=== PATIENT | female | born 1995 | race Caucasian/White ===

== ENCOUNTER 2019-03-29 19:55 | Inpatient (IN) | payer OTHER ==
[2019-03-29] MEDS ORDERED: OXYTOCIN 30 UNITS/LR 500 ML IV ×2 (20:30)
[2019-03-29] MEDS ORDERED: IBUPROFEN 600 MG TAB PO (20:30)
[2019-03-29] MEDS ORDERED: CARBOPROST 250 MCG INJ IM (20:30)
[2019-03-29] MEDS ORDERED: BUTORPHANOL 2 MG INJ IV (20:30)
[2019-03-29] MEDS ORDERED: METHYLERGONOVINE 0.2 MG INJ IM (20:30)
[2019-03-29] MEDS ORDERED: LIDOCAINE 1% (MPF) 30 ML INJ INJ (20:30)
[2019-03-29] MEDS ORDERED: MISOPROSTOL 200 MCG TAB PR (20:30)
[2019-03-29] MEDS: LACTATED RINGER'S 1,000 ML IV (20:41)
[2019-03-29 20:59] LABS: ADD MAN DIFF? NO
[2019-03-29 21:03] LABS: WHITE BLOOD COUNT 9.7 10^3/ul (4.8-10.8)
[2019-03-29 21:03] LABS: BASOPHILS % 0.2 % (0.0-2.0); EOSINOPHILS % 0.3 % (0.0-7.0); HEMATOCRIT 34.7 % (37.0-47.0); HEMOGLOBIN 11.7 g/dl (12.0-16.0); LYMPHOCYTES # 1.7 10^3/ul (0.8-2.9); LYMPHOCYTES % 17.2 % (15.0-51.0); MEAN CORPUSCULAR HEMOGLOBIN 31.3 pg (29.0-33.0); MEAN CORPUSCULAR HGB CONC 33.7 g/dl (32.0-37.0); MEAN CORPUSCULAR VOLUME 92.8 fl (82.0-101.0); MEAN PLATELET VOLUME 11.6 fl (7.4-10.4); MONOCYTE # 0.7 10^3/ul (0.3-0.9); MONOCYTES % 7.5 % (0.0-11.0); NEUTROPHIL # 7.2 10^3/ul (1.6-7.5); PLATELET COUNT 217 10^3/UL (140-415); RED BLOOD COUNT 3.74 10^6/ul (4.20-5.40); RED CELL DISTRIBUTION WIDTH 13.4 % (11.5-14.5)
[2019-03-29 21:25] LABS: INR 0.87; PROTIME 11.9 Sec (11.9-14.9); PT RATIO 0.9
[2019-03-29 21:26] LABS: PARTIAL THROMBOPLASTIN TIME 27.3 Sec (23.0-35.0)
[2019-03-29] MEDS: CLINDAMYCIN 900 MG/D5W (PMX) 50 ML IVPB (21:34)
[2019-03-29] MEDS: MISOPROSTOL 50 MCG CAPSULE PO (21:35)
[2019-03-29] MEDS: URSODIOL 300 MG CAP PO (22:32)
[2019-03-30] MEDS: LACTATED RINGER'S 1,000 ML IV ×3 (01:47→15:23)
[2019-03-30] MEDS: MISOPROSTOL 50 MCG CAPSULE PO ×5 (01:47→17:30)
[2019-03-30] MEDS: CLINDAMYCIN 600 MG/D5W (PMX) 50 ML IVPB ×5 (03:52→21:57)
[2019-03-30] MEDS ORDERED: FENTAnyl 2MCG/ML-ROPIV 0.2% 100 ML (07:18)
[2019-03-30] MEDS ORDERED: NALOXONE (0.4 MG/ML) INJ IV (07:30)
[2019-03-30] MEDS ORDERED: DIPHENHYDRAMINE 50 MG INJ IV (07:30)
[2019-03-30] MEDS ORDERED: URSODIOL 300 MG CAP PO (09:00)
[2019-03-30] MEDS: URSODIOL 300 MG CAP PO ×2 (09:00→13:00)
[2019-03-30 16:31] LABS: RAPID PLASMA REAGIN NONREACTIVE (NR)
[2019-03-30] MEDS: FENTAnyl 2MCG/ML-ROPIV 0.2% 100 ML BAG EPI (17:12)
[2019-03-30] MEDS: OXYTOCIN 30 UNITS/LR 500 ML IV (21:17)
[2019-03-30] MEDS: ONDANSETRON 4 MG INJ IV (23:57)
[2019-03-31] MEDS: FENTAnyl 2MCG/ML-ROPIV 0.2% 100 ML BAG EPI ×2 (03:18→13:44)
[2019-03-31] MEDS: CLINDAMYCIN 600 MG/D5W (PMX) 50 ML IVPB ×2 (05:31→11:35)
[2019-03-31] MEDS: LACTATED RINGER'S 1,000 ML IV ×2 (05:35→11:35)
[2019-03-31 08:25] LABS: ADD MAN DIFF? NO
[2019-03-31 08:26] LABS: WHITE BLOOD COUNT 11.6 10^3/ul (4.8-10.8)
[2019-03-31 08:26] LABS: BASOPHILS % 0.3 % (0.0-2.0); EOSINOPHILS % 0.2 % (0.0-7.0); HEMATOCRIT 33.6 % (37.0-47.0); HEMOGLOBIN 11.2 g/dl (12.0-16.0); LYMPHOCYTES # 1.7 10^3/ul (0.8-2.9); LYMPHOCYTES % 14.2 % (15.0-51.0); MEAN CORPUSCULAR HEMOGLOBIN 31.3 pg (29.0-33.0); MEAN CORPUSCULAR HGB CONC 33.3 g/dl (32.0-37.0); MEAN CORPUSCULAR VOLUME 93.9 fl (82.0-101.0); MEAN PLATELET VOLUME 11.6 fl (7.4-10.4); MONOCYTE # 0.9 10^3/ul (0.3-0.9); MONOCYTES % 7.5 % (0.0-11.0); NEUTROPHIL # 8.9 10^3/ul (1.6-7.5); NEUTROPHILS % 77.1 % (39.0-77.0); PLATELET COUNT 181 10^3/UL (140-415); RED BLOOD COUNT 3.58 10^6/ul (4.20-5.40); RED CELL DISTRIBUTION WIDTH 13.4 % (11.5-14.5)
[2019-03-31] MEDS: OXYTOCIN 30 UNITS/LR 500 ML IV ×2 (16:03→16:52)
[2019-03-31] MEDS ORDERED: ONDANSETRON 4 MG TAB PO (16:30)
[2019-03-31] MEDS ORDERED: MISOPROSTOL 200 MCG TAB PR (16:30)
[2019-03-31] MEDS ORDERED: ACETAMINOPHEN 325 MG TAB PO ×2 (16:30)
[2019-03-31] MEDS ORDERED: DIPHENHYDRAMINE 25 MG CAP PO (16:30)
[2019-03-31] MEDS ORDERED: DIPHENHYDRAMINE 50 MG INJ IV (16:30)
[2019-03-31] MEDS ORDERED: HYDROCODONE/APAP (5/325) TAB PO ×2 (16:30)
[2019-03-31] MEDS ORDERED: ONDANSETRON 4 MG INJ IV (16:30)
[2019-03-31] MEDS ORDERED: OXYTOCIN 30 UNITS/LR 500 ML IV (16:30)
[2019-03-31] MEDS ORDERED: MAGNESIUM HYDROXIDE 30ML CUP PO (16:30)
[2019-03-31] MEDS ORDERED: METHYLERGONOVINE 0.2 MG INJ IM (16:30)
[2019-03-31] MEDS ORDERED: CARBOPROST 250 MCG INJ IM (16:30)
[2019-03-31 17:21] LABS: ADD MAN DIFF? NO
[2019-03-31 17:23] LABS: BASOPHILS % 0.2 % (0.0-2.0); EOSINOPHILS % 0.1 % (0.0-7.0); HEMATOCRIT 35.5 % (37.0-47.0); HEMOGLOBIN 11.9 g/dl (12.0-16.0); LYMPHOCYTES # 1.1 10^3/ul (0.8-2.9); LYMPHOCYTES % 6.7 % (15.0-51.0); MEAN CORPUSCULAR HEMOGLOBIN 31.4 pg (29.0-33.0); MEAN CORPUSCULAR HGB CONC 33.5 g/dl (32.0-37.0); MEAN CORPUSCULAR VOLUME 93.7 fl (82.0-101.0); MEAN PLATELET VOLUME 11.5 fl (7.4-10.4); MONOCYTE # 0.9 10^3/ul (0.3-0.9); MONOCYTES % 5.5 % (0.0-11.0); PLATELET COUNT 186 10^3/UL (140-415); RED BLOOD COUNT 3.79 10^6/ul (4.20-5.40); RED CELL DISTRIBUTION WIDTH 13.4 % (11.5-14.5)
[2019-03-31] MEDS: LANOLIN HPA 1 PKT TOP (18:53)
[2019-03-31] MEDS: IBUPROFEN 800 MG TAB PO ×2 (18:53→23:48)
[2019-03-31] MEDS: DIBUCAINE 1% 30 GM OINT TOP (18:54)
[2019-03-31] MEDS: LACTATED RINGER'S 1,000 ML IV* (21:24)
[2019-04-01] MEDS: LACTATED RINGER'S 1,000 ML IV* (01:08)
[2019-04-01] MEDS: IBUPROFEN 800 MG TAB PO ×4 (05:34→23:48)
[2019-04-01 06:49] LABS: ADD MAN DIFF? NO
[2019-04-01 06:53] LABS: BASOPHILS % 0.2 % (0.0-2.0); EOSINOPHILS # 0.1 10^3/ul (0.0-0.5); EOSINOPHILS % 0.5 % (0.0-7.0); HEMOGLOBIN 10.6 g/dl (12.0-16.0); LYMPHOCYTES # 1.7 10^3/ul (0.8-2.9); LYMPHOCYTES % 12.5 % (15.0-51.0); MEAN CORPUSCULAR HEMOGLOBIN 31.7 pg (29.0-33.0); MEAN CORPUSCULAR HGB CONC 34.2 g/dl (32.0-37.0); MEAN CORPUSCULAR VOLUME 92.8 fl (82.0-101.0); MEAN PLATELET VOLUME 10.8 fl (7.4-10.4); MONOCYTES % 7.7 % (0.0-11.0); NEUTROPHIL # 10.4 10^3/ul (1.6-7.5); NEUTROPHILS % 78.1 % (39.0-77.0); PLATELET COUNT 162 10^3/UL (140-415); RED BLOOD COUNT 3.34 10^6/ul (4.20-5.40); RED CELL DISTRIBUTION WIDTH 13.5 % (11.5-14.5)
[2019-04-01 06:53] LABS: WHITE BLOOD COUNT 13.3 10^3/ul (4.8-10.8)
[2019-04-01 07:16] LABS: ALANINE AMINOTRANSFERASE 84 IU/L (13-69); ALBUMIN 2.6 g/dl (3.3-4.9); ALKALINE PHOSPHATASE 155 IU/L (42-121); ASPARTATE AMINO TRANSFERASE 62 IU/L (15-46); BILIRUBIN,INDIRECT 0.2 mg/dl (0-1.1); BILIRUBIN,TOTAL 0.2 mg/dl (0.2-1.3); TOTAL PROTEIN 5.8 g/dl (6.1-8.1)
[2019-04-01] MEDS: SENNA/DOCUSATE NA (8.6MG/50MG) TAB PO (12:05)
[2019-04-02] MEDS: IBUPROFEN 800 MG TAB PO ×2 (05:51→12:20)
[2019-04-02] MEDS: MEASLES,MUMPS,RUBELLA VACCINE INJ SC* (09:00)
[2019-04-02] MEDS: VARICELLA VACCINE LIVE/PF 1,350 UNIT/0.5 ML ML SC* (09:00)
[2019-04-02] MEDS: DIPHTH/TET/ACEL PERTUSS (ADULT) 0.5 ML VIAL IM* (10:29)
== END 2019-04-02 12:50 | disposition home or self-care (01) | DRG 805 ==
LOC: PP1 03-31 17:19 → L-D 19:55
PROVIDERS: Obstetrics & Gynecology
PROC: 10E0XZZ Delivery of Products of Conception, External Approach (ICD-10-PCS; principal; 2019-03-31)
DX: O26.62 Liver and biliary tract disorders in childbirth (principal); K83.1 Obstruction of bile duct; O69.81X0 Labor and delivery complicated by cord around neck, without compression, not applicable or unspecified; O63.0 Prolonged first stage (of labor); Z37.0 Single live birth; Z3A.37 37 weeks gestation of pregnancy
CPT/HCPCS: 80076; 85025; 85610; 85730; 86592; 86850; 86900; 86901; 88307; 90715; 90716; 99464